=== PATIENT | female | born 1955 | race Caucasian/White ===

== ENCOUNTER → 2023-10-26 14:02 | Outpatient (BNVA) | payer MEDICARE, SELFPAY | PROVIDERS: Family Provider Internal Medicine Nephrology; Visit Provider Surgery | DX: K80.20 Calculus of gallbladder without cholecystitis without obstruction (principal) | CPT/HCPCS: 99204 ==

== ENCOUNTER 2023-10-31 10:02 | Day surgery (SDC) | payer MEDICARE, SELFPAY ==
[2023-10-31] VITALS (10 sets, daily range): BP systolic 101–137; BP diastolic 57–75; PULSE 55–93; RESP 16–18; TEMP 36.1–36.9; O2SAT 94–99; BMI 22.3
--- NOTE | 2023-10-31 10:32 | ECG_ITS ---
[facility] [place] Date: 2023-10-31 Pat Name: Carin Mckinney Department: Room: Gender: Female Intervention Nurse: : [id number] Requested By: Mikal Nunez Order Number: [id number] Gabe MD: Cece Harrison M.D. Measurements Intervals [place] Rate: 61 P: 76 WA: 143 QRS: 30 QRSD: 85 T: 67 QT: 392 QTc: 396 Interpretive Statements SINUS RHYTHM INDETERMINATE AXIS POSSIBLE RIGHT VENTRICULAR CONDUCTION DELAY [RSR (QR) IN V1/V2] No previous ECG available for comparison Electronically Signed On 10-31-2023 12:21:20 HUMAN PERFORMANCE CONSULTANT by Cece Harrison M.D. [id number]
[2023-10-31] MEDS: sodium chloride 0.9% 1,000 ML 30 ML IV (10:43)
[2023-10-31] MEDS: scopolamine 1.5 Patch 1 PATCH TRANSDERMA (10:47)
--- NOTE | 2023-10-31 12:09 | W.PM.OPSUD ---
Surgery/Procedure H&P Update DATE OF PROCEDURE: October 31, 2023 DATE H&P PERFORMED: 10/26/23 H&P UPDATE INFORMATION: I have reviewed H&P completed within last 30 days, I have examined patient prior to procedure and No changes to prior documentation PLANNED PROCEDURE: Operation Date: 10/31/23 12:05 Proposed Procedures p 85838 lap everett K80.20(Not Applicable) - Rigo Haro DO
[2023-10-31] MEDS: ceFAZolin 2,000 MG in sodium chloride 0.9% (plus) 50 ML 100 MG IV (12:48)
[2023-10-31] MEDS: lidocaine-epi 2% 20 mL INJ INJECTION (13:07)
--- NOTE | 2023-10-31 13:20 | P.ANESASSM_ITS ---
Pre-Anesthetic Assessment Height/Weight: Height 1.57 m Weight 55.338 kg Temp Pulse Resp BP Pulse Ox O2 Del Method 98.5 F 82 18 125/72 97 Room Air 10/31/23 10:29 10/31/23 10:29 10/31/23 10:29 10/31/23 10:29 10/31/23 10:29 10/31/23 10:29 Operation Date: 10/31/23 12:05 Proposed Procedures p 17973 lap everett K80.20(Not Applicable) - Rigo Haro DO Familial anesthetic complications: none Was Beta Sadaf taken within 24 hours: N/A Was Clonidine taken within 24 hours: N/A Last intake: Intake Last Liquid Date 10/30/23 Last Liquid Time 23:00 Last Solid Date 10/30/23 Last Solid Time 23:00 Social Tobacco and No alcohol Exam alert, oriented x 3, clear to auscultation bilaterally and regular rate & rhythm Airway Submandibular: within normal limits Cervical ROM: within normal limits Mallampati: Class II Dentition: full Pulmonary Chronic Obstructive Pulmonary Disease GI Gastroesophageal Reflux Disease Metabolic Thyroid Disease Anesthetic Plan ASA status: 3 Anesthesia: General Medications/Allergies Home Medications Medication Instructions Recorded Confirmed Last Taken Type fluticasone propionate 50 1 spray intranasal PRN PRN Allergy 10/26/23 10/28/23 Unknown History mcg/actuation nasal Symptoms spray,suspension histaq 2 tab PO DAILY 10/26/23 10/28/23 Unknown History levothyroxine 75 mcg capsule 75 mcg PO DAILY 10/26/23 10/31/23 10/30/23 History omeprazole 40 mg capsule,delayed 40 mg PO DAILY 10/26/23 10/31/23 10/30/23 His tory release Allergies Allergy/AdvReac Type Severity Reaction Status Date / Time codeine Allergy ''feel Verified 10/28/23 12:25 really strange'' Current Medications Generic Name Dose Route Start Last Admin Trade Name Freq PRN Reason Stop Dose Admin Sodium Chloride 1,000 mls @ 30 mls/hr 10/31/23 10:30 10/31/23 10:43 Sodium Chloride 0.9% IV 11/01/23 10:29 30 mls/hr .Q24H SHELIA Administration PFSH Anesthesia Medical History (Updated 10/26/23 @ 14:44 by Rigo Haro DO) Hx of cataract bilat Surgical History (Updated 10/26/23 @ 14:44 by Rigo Haro DO) Hx of tonsillectomy Family History Mother Dementia Social History Smoking and tobacco/nicotine status: current every day tobacco/nicotine user cigarettes Alcohol intake: never Data Anesthesia Cardiac Studies: No Data to Display
--- NOTE | 2023-10-31 13:41 | PM.OP ---
Operative Report Date of procedure: October 31, 2023 Pre-op diagnosis: Symptomatic cholelithiasis Post-op diagnosis: same Procedure done: Laparoscopic cholecystectomy Implants: None Specimens removed/disposition: Gallbladder Surgeon: Rigo Haro DO Anesthesia: General Estimated blood loss (mL): 5 Complications: None apparent Brief History: This is a very pleasant 67-year-old female presented my office with symptomatic cholelithiasis. Laparoscopic cholecystectomy is indicated. The risk and benefits were explained and documented. Procedure: Patient was wheeled into the operative room and placed on the OR table in a supine position. Abdomen was inspected prepped and draped in usual sterile fashion. Time-out was performed and all present were in agreement. A 15 blade scalp was used to make a stab incision in the left upper quadrant and intra-abdominal insufflation was achieved using a Veress needle. After localizing the tissue incisions were made and a 5 millimeter trocar was placed into the umbilicus as well as 2 in the right upper quadrant. A 12 millimeter trocar was placed in the epigastrium. Gallbladder was grasped and elevated. The triangle of Calot was carefully dissected using blunt dissection and electrocautery until the triangle of Calot clearly identified. The cystic duct was clipped proximally and double clipped distally. The duct was then ligated proximally. The cystic artery was doubly clipped and ligated. The gallbladder was then removed from the liver bed using electrocautery. The gallbladder was removed from the abdomen using an Endo-Catch bag through the epigastric incision. The liver bed was inspected and no bleeding was seen. The abdomen was irrigated and suctioned. All ports removed. Skin was washed and dried. Incisions were closed with 4-0 Monocryl in a subcuticular interrupted fashion. Skin glue was applied. Patient tolerated the procedure well.
[2023-10-31] MEDS: HYDROcodone-acetaminophen 7.5-325 mg Tablet 1 TAB PO (14:56)
--- NOTE | 2023-10-31 18:01 | ANE.PACU2 ---
Inpatient post-anesthesia follow up: Airway intact: Yes Vital signs: Temperature 97 F Pulse Rate 55 Respiratory Rate 17 Blood Pressure 101/57 Pulse Oximetry 96 Oxygen Delivery Me thod Room Air Oxygen Flow Rate Fraction of Inspir ed Oxygen Hydration adequate: Yes Nausea and vomiting: No Pain level: 3 Mental status: Baseline
== END 2023-10-31 15:00 | disposition home or self-care (01) ==
PROVIDERS: PCP Nurse Practitioner Family; Visit Provider Surgery
PROC: 0FT44ZZ Resection of Gallbladder, Percutaneous Endoscopic Approach (ICD-10-PCS; CPT 47562; principal; 2023-10-31 11:55)
DX: K80.10 Calculus of gallbladder with chronic cholecystitis without obstruction (principal); J44.9 Chronic obstructive pulmonary disease, unspecified; K21.9 Gastro-esophageal reflux disease without esophagitis; F17.210 Nicotine dependence, cigarettes, uncomplicated
CPT/HCPCS: 47562; 88304; 93005; J0690; J1100; J2371; J2405; J2704; J2710; J3010; J3490; J7030

== ENCOUNTER → 2023-11-30 13:25 | Outpatient (BNVA) | payer MEDICARE, SELFPAY | PROVIDERS: PCP Nurse Practitioner Family; Visit Provider Surgery | DX: Z90.49 Acquired absence of other specified parts of digestive tract (principal); Z98.890 Other specified postprocedural states | CPT/HCPCS: 99024 ==

== ENCOUNTER → 2024-01-17 10:00 | Outpatient (BNVA) | payer MEDICARE, SELFPAY | PROVIDERS: PCP Nurse Practitioner Family; Referring Provider Nurse Practitioner Family; Visit Provider Nurse Practitioner Family | DX: L21.8 Other seborrheic dermatitis (principal); L57.8 Other skin changes due to chronic exposure to nonionizing radiation; L81.4 Other melanin hyperpigmentation; L65.0 Telogen effluvium; D22.39 Melanocytic nevi of other parts of face; L85.3 Xerosis cutis; L82.1 Other seborrheic keratosis; L60.8 Other nail disorders; L72.0 Epidermal cyst; B07.8 Other viral warts | CPT/HCPCS: 17110; 99204 ==

== ENCOUNTER → 2024-02-15 13:10 | Outpatient (BNVA) | payer MEDICARE, SELFPAY | PROVIDERS: PCP Nurse Practitioner Family; Visit Provider Nurse Practitioner Family | DX: B07.8 Other viral warts (principal); L21.8 Other seborrheic dermatitis; L57.8 Other skin changes due to chronic exposure to nonionizing radiation; L81.4 Other melanin hyperpigmentation; L65.0 Telogen effluvium; D22.39 Melanocytic nevi of other parts of face; L85.3 Xerosis cutis; L82.1 Other seborrheic keratosis; L72.0 Epidermal cyst; L57.0 Actinic keratosis | CPT/HCPCS: 17000; 17110; 99213 ==

== ENCOUNTER → 2024-02-29 09:48 | Outpatient (BNVA) | payer MEDICARE, SELFPAY | PROVIDERS: PCP Nurse Practitioner Family; Visit Provider Dermatology | DX: L60.0 Ingrowing nail (principal); L98.8 Other specified disorders of the skin and subcutaneous tissue; L08.9 Local infection of the skin and subcutaneous tissue, unspecified | CPT/HCPCS: 11730 ==

== ENCOUNTER → 2024-03-22 14:40 | Outpatient (BNVA) | payer MEDICARE, SELFPAY | PROVIDERS: PCP Nurse Practitioner Family; Visit Provider Dermatology | DX: L60.0 Ingrowing nail (principal); B07.8 Other viral warts | CPT/HCPCS: 17110; 99212 ==

== ENCOUNTER → 2024-04-25 13:07 | Outpatient (BNVA) | payer MEDICARE, SELFPAY | PROVIDERS: PCP Nurse Practitioner Family; Visit Provider Nurse Practitioner Family | DX: B07.8 Other viral warts (principal); L60.0 Ingrowing nail; L21.8 Other seborrheic dermatitis | CPT/HCPCS: 17110; 99213 ==

== ENCOUNTER → 2024-05-23 13:37 | Outpatient (BNVA) | payer MEDICARE, SELFPAY | PROVIDERS: PCP Nurse Practitioner Family; Visit Provider Nurse Practitioner Family | DX: B07.8 Other viral warts (principal); L60.0 Ingrowing nail; D22.61 Melanocytic nevi of right upper limb, including shoulder | CPT/HCPCS: 17110; 99213 ==

== ENCOUNTER → 2024-06-13 13:38 | Outpatient (BNVA) | payer MEDICARE, SELFPAY | PROVIDERS: PCP Nurse Practitioner Family; Visit Provider Nurse Practitioner Family | DX: B07.8 Other viral warts (principal); D22.61 Melanocytic nevi of right upper limb, including shoulder; L81.4 Other melanin hyperpigmentation | CPT/HCPCS: 17110; 99213 ==

== ENCOUNTER → 2024-07-10 13:03 | Outpatient (BNVA) | payer MEDICARE, SELFPAY | PROVIDERS: PCP Nurse Practitioner Family; Visit Provider Nurse Practitioner Family | DX: B07.8 Other viral warts (principal); L60.0 Ingrowing nail; L60.8 Other nail disorders | CPT/HCPCS: 17110; 99213 ==

== ENCOUNTER → 2024-08-01 13:31 | Outpatient (BNVA) | payer MEDICARE, SELFPAY | PROVIDERS: PCP Nurse Practitioner Family; Visit Provider Nurse Practitioner Family | DX: B07.8 Other viral warts (principal); D22.61 Melanocytic nevi of right upper limb, including shoulder; L81.4 Other melanin hyperpigmentation | CPT/HCPCS: 17110; 99213 ==

== ENCOUNTER → 2024-08-07 14:33 | Outpatient (BNVA) | payer MEDICARE, SELFPAY | PROVIDERS: PCP Nurse Practitioner Family; Visit Provider Podiatrist Foot & Ankle Surgery | DX: L60.8 Other nail disorders (principal) | CPT/HCPCS: 99203 ==

== ENCOUNTER → 2024-08-13 10:11 | Outpatient (BNVA) | payer MEDICARE, SELFPAY | PROVIDERS: PCP Nurse Practitioner Family; Visit Provider Surgery | DX: T14.8XXA Other injury of unspecified body region, initial encounter (principal); K92.1 Melena; X58.XXXA Exposure to other specified factors, initial encounter | CPT/HCPCS: 99214 ==

== ENCOUNTER → 2024-08-23 13:37 | Outpatient (BNVA) | payer MEDICARE, SELFPAY | PROVIDERS: PCP Nurse Practitioner Family; Visit Provider Nurse Practitioner Family | DX: B07.8 Other viral warts (principal); D22.61 Melanocytic nevi of right upper limb, including shoulder; L81.4 Other melanin hyperpigmentation | CPT/HCPCS: 17110; 99213 ==

== ENCOUNTER → 2024-09-19 14:32 | Outpatient (BNVA) | payer MEDICARE, SELFPAY | PROVIDERS: PCP Nurse Practitioner Family; Visit Provider Nurse Practitioner Family | DX: B07.8 Other viral warts (principal); L81.4 Other melanin hyperpigmentation; F17.200 Nicotine dependence, unspecified, uncomplicated | CPT/HCPCS: 17110; 99213 ==

== ENCOUNTER 2024-09-24 13:50 | Outpatient (CLI) | payer MEDICARE, SELFPAY ==
--- NOTE | 2024-09-24 13:52 | XR_ITS ---
WS: [id number] DEXA (DUAL ENERGY X-RAY ABSORPTIOMETRY) Bone mineral density was performed using a [employer] machine. HISTORY: screening for osteoporosis COMPARISON: None available. Lumbar spine BMD (L1-L4): 0.919 g/cm2 T score: -2.2 Z score: -0.3 Total hip BMD: Left: 0.781 g/cm2. T score: -1.8 Z score: -0.2 Right: 0.779 g/cm2. T score: -1.8 Z score: -0.2 10 year probability of a major osteoporotic fracture is 30.9%. XR/XR DEXA axial skeleton* 14868 IMPRESSION: OSTEOPENIA based upon the WHO classification for females.
== END 2024-09-24 13:51 | disposition home or self-care (01) ==
LOC: RAD 13:51
PROVIDERS: PCP Nurse Practitioner Family; Visit Provider Nurse Practitioner Family
DX: Z13.820 Encounter for screening for osteoporosis (principal); Z78.0 Asymptomatic menopausal state; M85.80 Other specified disorders of bone density and structure, unspecified site
CPT/HCPCS: 77080

== ENCOUNTER → 2024-10-17 13:17 | Outpatient (BNVA) | payer MEDICARE, SELFPAY | PROVIDERS: PCP Nurse Practitioner Family; Visit Provider Nurse Practitioner Family | DX: L81.4 Other melanin hyperpigmentation (principal); F17.200 Nicotine dependence, unspecified, uncomplicated; B07.8 Other viral warts; L29.89 Other pruritus | CPT/HCPCS: 17110; 99213 ==

== ENCOUNTER → 2024-10-30 08:43 | Outpatient (BNVA) | payer MEDICARE, SELFPAY | PROVIDERS: PCP Nurse Practitioner Family; Visit Provider Podiatrist Foot & Ankle Surgery | DX: L60.8 Other nail disorders (principal) | CPT/HCPCS: 11750 ==

== ENCOUNTER → 2024-11-08 13:21 | Outpatient (BNVA) | payer MEDICARE, SELFPAY | PROVIDERS: PCP Nurse Practitioner Family; Visit Provider Nurse Practitioner Family | DX: L81.4 Other melanin hyperpigmentation (principal); D22.61 Melanocytic nevi of right upper limb, including shoulder; B07.8 Other viral warts; R20.8 Other disturbances of skin sensation; L53.8 Other specified erythematous conditions | CPT/HCPCS: 17110; 99213 ==

== ENCOUNTER → 2025-02-13 13:01 | Outpatient (BNVA) | payer MEDICARE, SELFPAY | PROVIDERS: PCP Nurse Practitioner Family; Visit Provider Nurse Practitioner Family | DX: L81.4 Other melanin hyperpigmentation (principal); D22.61 Melanocytic nevi of right upper limb, including shoulder; B07.8 Other viral warts; R20.8 Other disturbances of skin sensation; L53.8 Other specified erythematous conditions; L29.89 Other pruritus | CPT/HCPCS: 17110; 99213 ==

== ENCOUNTER 2025-03-17 17:44 | Emergency (ER) | payer MEDICARE, SELFPAY ==
[2025-03-17 17:45] VITALS: BP 167/89; PULSE 115; TEMP 36.9; O2SAT 96; BMI 23.6
--- NOTE | 2025-03-17 18:12 | W.ED.ANIMALB ---
HPI - Animal Bite General: Chief Complaint: Animal Bite Stated Complaint: cat bites on both hands Time Seen by Provider: 03/17/25 18:05 Source: patient Mode of arrival: ambulatory Limitations: no limitations History of Present Illness: Patient is a 69-year-old female who presents the emergency department complaining of bilateral hand pain and swelling onset yesterday. Patient was attempting to give her pet cat a bath when the cat attacked her. States that this was provoked due to the bath and vaccinations are up-to-date. Patient's tetanus is up-to-date but she denies updating at this time as she states she is against this. She notes that the pain has steadily worsened as well as swelling and redness to the hands, and that she has felt sick all day. Requesting something for pain at this time. Multiple puncture wounds present at time of exam, mildly tachycardic. complaint: animal bite Onset (ago): day(s) (1) Animal: cat Description of animal: household pet and immunizations UTD Mechanism: bite Location - Extremities: Bilateral: hand Context: provoked (Attempted to give a bath) Associated symptoms: Deny chills, fever(s) or headache(s) Related Data Home Medications ?Medication ?Instructions ?Recorded ?Confirmed fluticasone propionate 50 1 spray intranasal PRN PRN Allergy 10/26/23 10/30/24 mcg/actuation nasal Symptoms spray,suspension histaq 2 tab PO DAILY 10/26/23 10/30/24 levothyroxine 75 mcg capsule 100 mcg PO DAILY 10/30/24 10/30/24 Previous Rx's ?Medication ?Instructions ?Recorded hydrocortisone 2.5 % topical cream 1 applic NC QID PRN hemorrhoids 10 08/13/24 with perineal applicator days #30 grams (Anusol-HC) clindamycin HCl 300 mg capsule 300 mg PO BID 7 days #14 caps 03/17/25 ketorolac 10 mg tablet 10 mg PO Q8H PRN pain #15 tabs 03/17/25 Allergies Allergy/AdvReac Type Severity Reaction Status Date / Time codeine Allergy ''feel Verified 03/17/25 17:52 really strange'' adhesive AdvReac Mild ALGY-Hives Verified 03/17/25 17:52 Review of Systems General: Reports: 10 or more systems reviewed and unremarkable except in HPI and below Const: Denies: fever(s) or chills Card: Denies: chest pain Resp: Denies: dyspnea GI: Denies: abdominal pain, nausea, vomiting or diarrhea Musc: Denies: extremity pain or joint pain Skin/Breast: Reports: skin pain, skin tenderness, skin swelling and new lesions (Puncture wounds of bilateral hands from cat); Denies: rash Neuro: Denies: headache(s) PFSH ED PFSH: Medical History Hx of cataract bilat Surgical History Hx laparoscopic cholecystectomy Hx of tonsillectomy Family History Mother Dementia Social History Smoking and tobacco/nicotine status: current every day tobacco/nicotine user cigarettes Alcohol intake: never Physical Exam Const: COMMON NORMALS: no acute distress, average body habitus, patient oriented x3, no limitations, healthy appearing, alert and well nourished HENMT: COMMON NORMALS: normocephalic and atraumatic HEAD & SCALP: normocephalic and atraumatic Neck/C-Spine: COMMON NORMALS: full ROM, no lymphadenopathy, supple and no meningeal signs Resp: COMMON NORMALS: normal respiratory effort, No use of accessory muscles and clear to auscultation bilaterally AUSCULTATION: clear to auscultation bilaterally Cardio: COMMON NORMALS: regular rhythm RATE: tachycardic RHYTHM: regular rhythm Extremity: COMMON NORMALS: full ROM and capillary refill normal NARRATIVE EXTREMITY EXAM: Radial pulse palpable bilaterally Neuro: COMMON NORMALS: patient oriented x3 SENSORIUM/ORIENTATION: Yes alert MENINGEAL SIGNS: Yes no meningeal signs Skin: COMMON NORMALS: turgor normal NARRATIVE SKIN EXAM: There is redness and edema to dorsum of patient's bilateral wrists extending into the hand. Scattered puncture wounds bilaterally but no active bleeding or drainage. GENERAL SKIN EXAM: turgor normal Course Vital Signs: Vital signs: Vital Signs Temperature 98.5 F 03/17/25 17:45 Pulse Rate 115 H 03/17/25 17:45 Blood Pressure 167/89 03/17/25 17:45 Pulse Oximetry 96 03/17/25 17:45 Oxygen Delivery Me thod Room Air 03/17/25 17:45 MDM - Animal Bite Medical Decision Making Patient presenting for evaluation of cat bite to her bilateral hands, redness and swelling noted to bilateral hands with puncture wounds on exam. Mildly tachycardic, she was given Toradol here for pain and a shot of ceftriaxone and upon recheck her heart rate had normalized and she was stating pain was much improved. With lab work, there was mild increase in her white count as well as to her ESR and CRP, I am suspecting cellulitis and will start her on outpatient antibiotics and have her closely follow-up with her regular doctor in the next 48 hours. Told her to return with any persistent fever, vomiting, worsening illness, or other concerns. She agrees with this plan. Did offer her and recommend tetanus update today, she denied due to her not wanting to be vaccinated. Lab Data 03/17/25 18:35 03/17/25 18:35 Laboratory Results WBC 15.16 10^3/uL (3.29-11.43) H 03/17/25 18:35 RBC 5.27 10^6/uL (3.85-5.65) 03/17/25 18:35 Hgb 14.90 g/dL (11.27-16.99) 03/17/25 18:35 Hct 45.3 % (36-47) 03/17/25 18:35 MCV 86.0 fl (85-98) 03/17/25 18:35 MCH 28.3 pg (27-33) 03/17/25 18:35 MCHC 32.9 g/dL (30-55) 03/17/25 18:35 RDW 14.3 % (12.1-15.1) 03/17/25 18:35 Plt Count 197 10^3/cmm (157-399) 03/17/25 18:35 MPV 9.8 fL (7.4-10.4) 03/17/25 18:35 Neut % (Auto) 66.6 % 03/17/25 18:35 Lymph % (Auto) 17.9 % 03/17/25 18:35 Henry % (Auto) 12.8 % 03/17/25 18:35 Eos % (Auto) 1.6 % 03/17/25 18:35 Baso % (Auto) 0.7 % 03/17/25 18:35 Neut # (Auto) 10.10 10^3/uL (1.8-7.7) H 03/17/25 18:35 Lymph # (Auto) 2.7 10^3/uL (0.8-4.8) 03/17/25 18:35 Henry # (Auto) 1.9 10^3/uL (0.2-0.9) H 03/17/25 18:35 Eos # (Auto) 0.3 10^3/uL (0.0-0.8) 03/17/25 18:35 Baso # (Auto) 0.1 10^3/uL (0.0-0.1) 03/17/25 18:35 Nucleated RBC % (auto) 0 % 03/17/25 18:35 Nucleated RBCs # 0.0 /100WBC 03/17/25 18:35 ESR 22 mm/hr (0-15) H 03/17/25 18:35 Sodium 135 mmol/L (136-145) L 03/17/25 18:35 Potassium 3.8 mmol/L (3.5-5.1) 03/17/25 18:35 Chloride 101 mmol/L (98-107) 03/17/25 18:35 Carbon Dioxide 21 mmol/L (22-29) L 03/17/25 18:35 Anion Gap 16.8 (5-19) 03/17/25 18:35 BUN 10 mg/dL (8-23) 03/17/25 18:35 Creatinine 0.9 mg/dL (0.5-0.9) 03/17/25 18:35 GFR Calculation Not Reportable 03/17/25 18:35 Glucose 103 mg/dL (65-115) 03/17/25 18:35 Calculated Osmolality 279 mOsm/kg (285-295) L 03/17/25 18:35 Calcium 8.6 mg/dL (8.5-10.5) 03/17/25 18:35 Total Bilirubin 0.3 mg/dL (0.15-1.2) 03/17/25 18:35 AST 17 U/L (0-32) 03/17/25 18:35 ALT < 5 U/L (0-33) 03/17/25 18:35 Alkaline Phosphatase 89 U/L (35-105) 03/17/25 18:35 C-Reactive Protein 32.0 mg/L (0.0-4.9) H 03/17/25 18:35 Total Protein 6.9 g/dL (6.6-8.7) 03/17/25 18:35 Albumin 3.9 g/dL (3.5-5.2) 03/17/25 18:35 Globulin 3.0 g/dL (1.3-4.6) 03/17/25 18:35 No radiology studies performed this visit Discharge Plan Discharge Patient Disposition: Home Clinical Impression: Cellulitis of hand, right, Cellulitis of hand, left Cat bite Qualifiers: Encounter type: initial encounter Qualified Code(s): W55.01XA - Bitten by cat, initial encounter Condition: Stable Prescriptions: New clindamycin HCl 300 mg capsule 300 mg PO BID 7 Days Qty: 14 0RF ketorolac 10 mg tablet 10 mg PO Q8H PRN (Reason: pain) Qty: 15 0RF No Action histaq 2 tab PO DAILY fluticasone propionate 50 mcg/actuation spray,suspension 1 spray intranasal PRN PRN (Reason: Allergy Symptoms) Rx Instructions: administer into each nostril levothyroxine 75 mcg capsule 100 mcg PO DAILY hydrocortisone [Anusol-HC] 2.5 % cream with perineal applicator 1 applic NC QID PRN (Reason: hemorrhoids) 10 Days Qty: 30 0RF Discharge Orders: Discharge ED (Routine); Ordered 03/17/25 Ordered By: Danny Snyder Referrals: Leanne Gallo NP [Primary Care Provider] - Patient Instructions: Animal Bite (ED), Cellulitis (ED) Activity Restrictions/Additional Instructions: Please take the antibiotics as prescribed. Alternate the Toradol with Tylenol. Apply ice for relief. Monitor for any fever, vomiting, other severe signs of illness, or other concerns and return to the ED as we discussed. Please follow-up routinely with your regular doctor in the next couple of days. Print Language: Congolese Coding Level of Care Code ED Spiral Winding Machine Helper for Quinten Ramsey
[2025-03-17] MEDS: ketorolac 60 mg/2 mL INJ IM (18:28)
[2025-03-17] MEDS: cefTRIAXone 1,000 MG in water for injection-sterile 2.1 ML 2.1 MG IM (18:30)
[2025-03-17 18:42] LABS: Basophils # 0.1 10^3/uL (0.0-0.1); Basophils % 0.7 %; Eosinophils # 0.3 10^3/uL (0.0-0.8); Eosinophils % 1.6 %; Hematocrit 45.3 % (36-47); Lymphocytes # 2.7 10^3/uL (0.8-4.8); Lymphocytes % 17.9 %; Mean Corpuscular HGB Conc 32.9 g/dL (30-55); Mean Corpuscular Hemoglobin 28.3 pg (27-33); Mean Platelet Volume 9.8 fL (7.4-10.4); Monocytes # 1.9 10^3/uL (0.2-0.9); Monocytes % 12.8 %; Neutrophils % 66.6 %; Nucleated Red Blood Cells % 0 %; Platelet Count 197 10^3/cmm (157-399); Red Blood Count 5.27 10^6/uL (3.85-5.65); Red Cell Distribution Width 14.3 % (12.1-15.1); White Blood Count 15.16 10^3/uL (3.29-11.43)
[2025-03-17 18:44] LABS: Erythrocyte Sedimentation Rate 22 mm/hr (0-15)
[2025-03-17 18:59] LABS: Alanine Aminotransferase < 5 U/L (0-33); Albumin Level 3.9 g/dL (3.5-5.2); Alkaline Phosphatase 89 U/L (35-105); Aspartate Amino Transferase 17 U/L (0-32); Blood Urea Nitrogen 10 mg/dL (8-23); Calcium 8.6 mg/dL (8.5-10.5); Carbon Dioxide 21 mmol/L (22-29); Chloride 101 mmol/L (98-107); Glucose 103 mg/dL (65-115); Osmolality Calculated 279 mOsm/kg (285-295); Sodium 135 mmol/L (136-145); Total Bilirubin 0.3 mg/dL (0.15-1.2); Total Protein 6.9 g/dL (6.6-8.7)
[2025-03-17 19:05] LABS: Anion Gap 16.8 (5-19); Potassium 3.8 mmol/L (3.5-5.1)
[2025-03-17 19:15] VITALS: BP 140/77; PULSE 87; RESP 16; O2SAT 93
== END 2025-03-17 19:21 | disposition home or self-care (01) ==
PROVIDERS: Emergency Provider Physician Assistant; PCP Nurse Practitioner Family
DX: L03.114 Cellulitis of left upper limb (principal); L03.113 Cellulitis of right upper limb; W55.01XA Bitten by cat, initial encounter; F17.210 Nicotine dependence, cigarettes, uncomplicated
CPT/HCPCS: 36415; 80053; 85025; 85651; 86140; 96372; 99284; J0696; J1885

== ENCOUNTER → 2025-03-26 13:45 | Outpatient (BNVA) | payer MEDICARE, SELFPAY | PROVIDERS: PCP Nurse Practitioner Family; Visit Provider Nurse Practitioner Family | DX: B07.8 Other viral warts (principal); R20.8 Other disturbances of skin sensation; R23.8 Other skin changes; R20.9 Unspecified disturbances of skin sensation; L53.8 Other specified erythematous conditions; W55.01XA Bitten by cat, initial encounter; L29.89 Other pruritus | CPT/HCPCS: 17110; 99213 ==

== ENCOUNTER 2025-04-24 14:57 | Outpatient (CLI) | payer MEDICARE, SELFPAY ==
--- NOTE | 2025-04-24 15:12 | XR_ITS ---
WS: [id number] Lumbar spine, 7 views including both obliques, and lateral views in flexion, extension and neutral position, 04/24/2025 Clinical Data: NUMBNESS IN FEET Comparison: None. Findings: No compression fractures or subluxation is seen. There is disc narrowing at L5- S1. The oblique films show no spondylolysis. No instability occurs on flexion or extension. The transverse processes and SI joints are normal. There is a gentle dextroscoliosis. There are right upper quadrant cholecystectomy clips. XR/XR lumbar spine 6V w f/e [id number] Impression: 1. Disc narrowing L5-S1 with minimal dextroscoliosis. 2. Negative for spondylolysis. 3. No instability on flexion or extension.
== END 2025-04-24 14:58 | disposition home or self-care (01) ==
PROVIDERS: PCP Nurse Practitioner Family; Visit Provider Nurse Practitioner Family
DX: L81.4 Other melanin hyperpigmentation (principal); W55.01XA Bitten by cat, initial encounter; X58.XXXA Exposure to other specified factors, initial encounter; B07.8 Other viral warts; R20.8 Other disturbances of skin sensation; R23.8 Other skin changes; R20.9 Unspecified disturbances of skin sensation; L53.8 Other specified erythematous conditions; L29.89 Other pruritus
CPT/HCPCS: 17110; 72114; 99213

== ENCOUNTER → 2025-05-29 13:35 | Outpatient (BNVA) | payer MEDICARE, SELFPAY | PROVIDERS: PCP Nurse Practitioner Family; Visit Provider Nurse Practitioner Family | DX: L81.4 Other melanin hyperpigmentation (principal); D22.61 Melanocytic nevi of right upper limb, including shoulder; B07.8 Other viral warts; R20.8 Other disturbances of skin sensation; R23.8 Other skin changes; R20.9 Unspecified disturbances of skin sensation; L53.8 Other specified erythematous conditions; L29.89 Other pruritus | CPT/HCPCS: 17110; 99213 ==

== ENCOUNTER → 2025-06-24 15:16 | Outpatient (BNVA) | payer MEDICARE, SELFPAY | PROVIDERS: PCP Nurse Practitioner Family; Visit Provider Nurse Practitioner Family | DX: B07.8 Other viral warts (principal); R20.8 Other disturbances of skin sensation; R23.8 Other skin changes; R20.9 Unspecified disturbances of skin sensation; L53.8 Other specified erythematous conditions; L29.89 Other pruritus | CPT/HCPCS: 17110; 99214 ==

== ENCOUNTER → 2025-07-17 15:57 | Outpatient (BNVA) | payer MEDICARE, SELFPAY | PROVIDERS: PCP Nurse Practitioner Family; Visit Provider Nurse Practitioner Family | DX: L72.0 Epidermal cyst (principal); L70.0 Acne vulgaris; D23.39 Other benign neoplasm of skin of other parts of face; B07.8 Other viral warts; R20.8 Other disturbances of skin sensation; R23.8 Other skin changes; R20.9 Unspecified disturbances of skin sensation; L53.8 Other specified erythematous conditions; L29.89 Other pruritus | CPT/HCPCS: 17110; 99213 ==